=== PATIENT | male | born 1965 | race Caucasian/White ===

== ENCOUNTER 2019-07-04 10:57 | Emergency (ER) | payer BC, SELFPAY ==
--- NOTE | ~2019-07-04 | CT_ITS ---
EXAMINATION: CT BRAIN W/O DATE: 07/04/2019 11:49 INDICATION: Headache. Paresthesias. TECHNIQUE: Computed tomography (CT) of the head was performed without intravenous contrast. The dose- length product was 681.00 mGy-cm. The mA was adjusted according to patient size. Iterative reconstruc tion technique was employed. COMPARISON: No prior studies for comparison. FINDINGS: Normal brain parenchymal volume for age. Normal riley-white differentiation. No acute intrac ranial hemorrhage, infarction, mass or mass effect. There are scattered mild periventricular and subc ortical white matter changes, most likely related to small vessel ischemic disease (microangiopathy). No ventriculomegaly or midline shift. Midline sagittal images demonstrate a normal corpus callosum, c raniovertebral junction and sella turcica. Basilar cisterns are patent. Paranasal sinuses and mastoids are pneumatized. No depressed skull fractures. IMPRESSION: 1. No acute intracranial abnormality. 2: Normal age-related findings. Reviewed, dictated and finalized at location A.
[2019-07-04 11:02] VITALS: BP 135/76; PULSE 97; RESP 16; TEMP 36.6; O2SAT 98
--- NOTE | 2019-07-04 11:28 | ED.GENADULT ---
HPI - General Adult General Chief complaint: Unspecified Stated complaint: SINUS CONGESTION X 2MONTHS Time Seen by Provider: 07/04/19 11:24 Source: patient and RN notes reviewed Mode of arrival: ambulatory Limitations: no limitations History of Present Illness HPI narrative: Pt is a 54 y/o male who presents to the ED with c/o frontal headache. He describes his pain as a pressure. According to the nurse, the pt's symptoms began several months ago. Pt notes that he has also recently had chills, tingling in his rt arm, increased thirst, urinary frequency, intermittent blurry vision, and troubled balance. He denies any fever, CP, SOB, ABD pain, nausea, vomiting, diarrhea, homicidal ideations, or suicidal ideations. Pt states that his headache is currently alleviated. He notes that he has no Hx of DM, and states that he doesn't currently have a PCP. MD complaint: Headache Onset (ago): month(s) (several) Location: head Pain Consistency: other (currently alleviated) Associated symptoms: fever/chills (chills) and other (troubled balance; tingling in rt arm; increased thirst; urinary frequency; blurred vision) Treatments prior to arrival: none Related Data Home Medications Medication Instructions Recorded Confirmed No Home Medications 07/04/19 07/04/19 Allergies Allergy/AdvReac Type Severity Reaction Status Date / Time No Known Allergies Allergy Unknown Verified 07/04/19 11:15 Review of Systems Review of Systems: Narrative: CONSTITUTIONAL: Denies fever or sweats. Reports chills and increased thirst. EYES: Reports blurred vision. Denies redness or discharge. ENT: Denies rhinorrhea, congestion, sore throat, or otalgia. CARDIOVASCULAR: Denies chest pain, palpitations, or edema. RESPIRATORY: Denies cough or dyspnea. GASTROINTESTINAL: Denies abdominal pain, nausea, vomiting, or diarrhea. GENITOURINARY: Denies dysuria or hematuria. Reports urinary frequency. NEUROLOGIC: Reports frontal headache, troubled balance, and tingling in rt arm. Denies weakness. PSYCHIATRIC: Denies anxiety, depression, suicidal ideations, or homicidal ideations. All systems reviewed & are unremarkable except as noted in HPI and below PMFSH Past Medical History Medical History Gastritis Rib fractures Surgical History Surgical History No significant past surgical history Social History Social History Smoking status: Current every day smoker Exam Narrative: Exam Narrative: GENERAL: Well-appearing, well-nourished, and in no acute distress. HEAD: Normocephalic, atraumatic. EYES: PERRLA and EOMI. ENT: Nares clear, no rhinorrhea or epistaxis. Mucous membranes moist. NECK: Supple. CHEST: Clear to auscultation. No respiratory distress. HEART: Regular rate and rhythm. No murmur heard. Normal peripheral pulses. ABDOMEN: Soft, nontender, nondistended, normal active bowel sounds. Nontender umbilical hernia. EXTREMITIES: Normal range of motion. No edema. SKIN: Warm, dry, no rash. NEURO: No focal deficits. Alert and oriented. Finger to nose intact bilaterally. EOMs intact without nystagmus. No facial droop/asymmetry noted bilaterally. Grimace intact. Intact sensation in face. Hearing intact bilaterally. Shoulder shrug intact. Strength 5/5 bilateral upper extremities. Strength 5/5 bilateral lower extremities. Reflexes 2+ patellar. Heel to rich intact bilaterally. Ambulatory with a narrow base, steady gait, no ataxia. Course Course Emergency Course: Patient presented for evaluation Vital Signs Vital signs: Vital Signs Temperature 36.6 C 07/04/19 11:02 Pulse Rate 97 07/04/19 11:02 Respiratory Rate 16 07/04/19 11:02 Blood Pressure 135/76 07/04/19 11:02 Pulse Oximetry 98 07/04/19 11:02 Temperature 36.6 C 07/04/19 11:02 Pulse Rate 97 07/04/19 11:02 Respiratory Rate 16 07/04/19 11:02 Blood Press
[2019-07-04 12:03] LABS: Basophils Absolute Auto 0.1 K/mm3 (0.0-0.1); Basophils Percent Auto 0.7 % (0.2-1.2); Eosinophils Absolute Auto 0.2 K/mm3 (0-0.3); Eosinophils Percent Auto 1.6 % (0-4.4); Hematocrit 46.6 % (42.0-52.0); Hemoglobin 15.1 g/dL (14.0-18.0); Immature Granulocyte Absolute 0.05 K/mm3 (0.00-0.031); Immature Granulocyte Percent A 0.4 % (0-0.5); Lymphocytes Absolute Auto 2.69 K/mm3 (0.9-3.2); Lymphocytes Percent Auto 21.9 % (18.3-44.2); Mean Corpuscular HGB Conc 32.4 g/dl (32-36); Mean Corpuscular Hemoglobin 29.7 pg (26-34); Mean Corpuscular Volume 91.6 fl (80-100); Mean Platelet Volume 10.4 fl (7.4-10.4); Neutrophils Absolute Auto 8.3 K/mm3 (1.3-6.7); Neutrophils Percent Auto 67.4 % (45.5-73.1); Platelet Count Result 201 k/mm3 (150-375); Red Blood Count 5.09 M/mm3 (4.6-6.20); Red Cell Distribution Width 13.1 % (11.5-14.5); White Blood Count 12.3 K/mm3 (4.5-10.0)
[2019-07-04 12:11] LABS: Add Urine Microscopic? NO; Appearance Urine Clear (Clear); Bilirubin Urine Negative (Negative); Blood Urine Negative (Negative); Color Urine Straw (Yellow); Glucose Urine UA Negative (Negative); Ketones Urine Negative (Negative); Leukocyte Esterase Ur Negative LEU/UL (Negative); Nitrate Urine Negative (Negative); Protein Urine Negative (Negative); Specific Grav Ur 1.008 (1.001-1.035); Urobilinogen Urine Negative mg/dL (<2.0)
[2019-07-04 12:13] LABS: Alanine Aminotransferase 12 U/L (4-50); Albumin Level 4.2 g/dL (3.5-5.1); Alkaline Phosphatase 101 U/L (38-126); Aspartate Amino Transferase 20 U/L (17-59); Bilirubin,Total 0.2 mg/dL (0.2-1.3); Blood Urea Nitrogen 12 mg/dL (9-20); Calcium 9.1 mg/dL (8.4-10.2); Carbon Dioxide 30 mmol/L (22-30); Chloride 105 mmol/L (98-107); Estimated CRCL calculation 101 ml/min; Estimated Glomerular Filt Rate > 60; Glucose 96 mg/dL (75-110); Potassium 4.6 mmol/L (3.4-5.0); Sodium 137 mmol/L (137-145)
[2019-07-04 12:36] LABS: Amphetamine Screen Urine Negative (Negative); Barbiturate Screen Urine Negative (Negative); Benzodiazepines Screen Urine Negative (Negative); Cannabinoid Screen Urine Negative (Negative); Cocaine Screen Urine Negative (Negative); Methadone Screen Urine Negative (Negative); Opiate Screen Urine Negative (Negative); Phencyclidine Screen Urine Negative (Negative)
[2019-07-04 13:02] VITALS: BP 132/88; PULSE 84; RESP 16; O2SAT 97
== END 2019-07-04 13:03 | disposition home or self-care (01) ==
PROVIDERS: Emergency Provider Emergency Medicine
DX: R53.81 Other malaise (principal); R53.1 Weakness; F17.200 Nicotine dependence, unspecified, uncomplicated
CPT/HCPCS: 36415; 70450; 80053; 80307; 81003; 85025; 99284

== ENCOUNTER 2020-12-04 09:52 | Emergency (ER) | payer BC, SELFPAY ==
--- NOTE | ~2020-12-04 | CT_ITS ---
EXAMINATION: CT brain wo con DATE: 12/04/2020 11:57 INDICATION: Headache and confusion. TECHNIQUE: Computed tomography (CT) of the head was performed without intravenous contrast. The mA wa s adjusted according to patient size. Iterative reconstruction technique was employed. The dose-lengt h product was 605.33 mGy-cm. COMPARISON: Head CT 07/04/2019 FINDINGS: There is no intracranial hemorrhage, acute infarction, or abnormal intracranial mass lesion . There are scattered areas of low attenuation in the cerebral white matter, which is within normal l imits for the patient's age. The ventricles are normal in size. There is mild mucosal thickening in t he paranasal sinuses. The orbits are normal. The mastoid air cells are normal. IMPRESSION: 1. Normal aging brain. Reviewed, dictated and finalized at location A. IMPRESSION: 1. Normal aging brain.
[2020-12-04 10:06] VITALS: BP 141/98; PULSE 100; RESP 16; TEMP 36.6; O2SAT 96
--- NOTE | 2020-12-04 11:33 | ED.GENADULT ---
HPI - General Adult General Chief complaint: Unspecified Stated complaint: Headache Time Seen by Provider: 12/04/20 11:07 History of Present Illness HPI narrative: 55 yo male presents to the ED c/o multiple symptoms. He reports that about a year ago he began expiriencing a few different symptoms. He has had frequent frontal headaches that feel like pressure. He also notes jolts in the arms and legs. He reports that they move on the inside, not the outside. He also feels like he can not drink enough water, he is always dehydrated. Additionally he thinks that he might have been bleeding from his ears about 1 month ago. He is concerned that someone may be poisoning him. Related Data Home Medications Medication Instructions Recorded Confirmed No Home Medications 07/04/19 07/04/19 Allergies Allergy/AdvReac Type Severity Reaction Status Date / Time No Known Allergies Allergy Unknown Verified 07/04/19 11:15 Review of Systems Review of Systems: All systems reviewed & are unremarkable except as noted in HPI and below Constitutional: Constitutional: Denies fever(s) and Reports headache(s) Eyes: Eyes: Reports blurry vision ENT: Reports dry mouth Cardiovascular: Cardiovascular: Denies chest pain Respiratory: Respiratory: Denies dyspnea Gastrointestinal: Gastrointestinal: Reports nausea and Reports vomiting Genitourinary: Genitourinary: Reports no additional male genitourinary complaints Musculoskeletal: Musculoskeletal: Reports as per HPI Neurologic: Reports as per HPI [facility] Past Medical History Medical History (Updated 12/04/20 @ 15:01 by Red Thomason MD) Gastritis Rib fractures Surgical History Surgical History No significant past surgical history Social History Social History Smoking status: Current every day smoker Exam Const: General: healthy appearing, no acute distress and alert Orientation/consciousness: patient oriented x3 HENMT: Head: normal to inspection Ears: external ears normal and TM's normal bilaterally Neck: Neck: normal visual inspection Resp: Effort & Inspection: normal respiratory effort Auscultation: no rales, no rhonchi and wheezes scattered wheezes Cardio: Jugular venous distension: no JVD Rate: regular rate Rhythm: regular rhythm Heart sounds: no murmurs GI: Inspection: non-distended GI Palp: Yes Soft to palpation and No Tenderness to palpation present (GI) Skin: General skin exam: normal color Neuro: General: patient oriented x3 and moves all extremities Speech: normal speech Extrem: General: no edema Psych: Appearance: well kempt Affect: normal affect Thought content: Yes other (mild paranoia) Course Vital Signs Vital signs: Vital Signs Temperature 36.6 C 12/04/20 10:06 Pulse Rate 100 12/04/20 10:06 Respiratory Rate 16 12/04/20 10:06 Blood Pressure 141/98 H 12/04/20 10:06 Pulse Oximetry 96 12/04/20 10:06 Temperature 36.6 C 12/04/20 10:06 Pulse Rate 90 12/04/20 15:22 Respiratory Rate 18 12/04/20 15:22 Blood Pressure 141/84 H 12/04/20 15:22 Pulse Oximetry 98 12/04/20 15:22 Medical Decision Making MDM Narrative Medical decision making narrative: Symptoms aare nonspecific. He seems to be mildly paranoid, but not to the level of needing psychiatric evaluation at this point. Labs and imaging unremarkable. Differential Diagnosis Differential Diagnosis: SAH, Brain mass, tension headache, anxiety Medical Records Medical records reviewed: Yes I reviewed the external patient's medical records. Vital Signs Vital Signs: Vital Signs Temperature 36.6 C 12/04/20 10:06 Pulse Rate 100 12/04/20 10:06 Respiratory Rate 16 12/04/20 10:06 Blood Pressure 141/98 H 12/04/20 10:06 Pulse Oximetry 96 12/04/20 10:06 Temperature 36.6 C 12/04/20 10:06 Pulse Rate 90 12/04/20 15:22 Res
[2020-12-04 12:55] LABS: Basophils Percent Auto 0.3 % (0.2-1.2); Eosinophils Absolute Auto 0.2 K/mm3 (0-0.3); Eosinophils Percent Auto 1.9 % (0-4.4); Hematocrit 45.6 % (42.0-52.0); Immature Granulocyte Absolute 0.02 K/mm3 (0.00-0.031); Immature Granulocyte Percent A 0.2 % (0-0.5); Lymphocytes Absolute Auto 2.08 K/mm3 (0.9-3.2); Mean Corpuscular HGB Conc 32.9 g/dl (32-36); Mean Corpuscular Hemoglobin 29.4 pg (26-34); Mean Corpuscular Volume 89.2 fl (80-100); Mean Platelet Volume 10.4 fl (7.4-10.4); Monocytes Absolute Auto 0.7 K/mm3 (0.1-0.6); Monocytes Percent Auto 6.5 % (2.6-8.5); Neutrophils Absolute Auto 7.4 K/mm3 (1.3-6.7); Neutrophils Percent Auto 71.1 % (45.5-73.1); Platelet Count Result 241 k/mm3 (150-375); Red Blood Count 5.11 M/mm3 (4.6-6.20); Red Cell Distribution Width 13.6 % (11.5-14.5); White Blood Count 10.4 K/mm3 (4.5-10.0)
[2020-12-04 13:08] LABS: INR 0.9
[2020-12-04 13:09] LABS: Partial Thromboplastin Time 32.1 SECONDS (22.3-36.8)
[2020-12-04 13:10] LABS: Alanine Aminotransferase 15 U/L (4-50); Albumin Level 4.1 g/dL (3.5-5.1); Alkaline Phosphatase 116 U/L (38-126); Anion Gap 6 mmol/L (8-16); Aspartate Amino Transferase 21 U/L (17-59); Bilirubin,Total 0.3 mg/dL (0.2-1.3); Blood Urea Nitrogen 13 mg/dL (9-20); Calcium 9.4 mg/dL (8.4-10.2); Carbon Dioxide 26 mmol/L (22-30); Chloride 103 mmol/L (98-107); Estimated CRCL calculation 112 ml/min; Estimated Glomerular Filt Rate > 60; Glucose 109 mg/dL (65-110); Sodium 135 mmol/L (137-145)
[2020-12-04] MEDS: SODIUM CHLORIDE 0.9% IV 1,000 ML 999 ML IV CONT (13:21)
[2020-12-04 14:27] LABS: Add Urine Microscopic? NO; Appearance Urine Clear (Clear); Bilirubin Urine Negative (Negative); Blood Urine Negative (Negative); Color Urine Yellow (Yellow); Glucose Urine UA Negative (Negative); Ketones Urine Negative (Negative); Leukocyte Esterase Ur Negative LEU/UL (Negative); Nitrate Urine Negative (Negative); Protein Urine Negative (Negative); Specific Grav Ur 1.019 (1.001-1.035); Urobilinogen Urine Negative mg/dL (<2.0)
[2020-12-04 14:36] LABS: Mucus Urine Rare /lpf; RBC Urine 0-2 /hpf (0-2); WBC Urine 0-3 /hpf
[2020-12-04 15:22] VITALS: BP 141/84; PULSE 90; RESP 18; O2SAT 98
== END 2020-12-04 15:25 | disposition home or self-care (01) ==
PROVIDERS: Emergency Provider Emergency Medicine
DX: F51.9 Sleep disorder not due to a substance or known physiological condition, unspecified (principal); F17.200 Nicotine dependence, unspecified, uncomplicated
CPT/HCPCS: 36415; 70450; 80053; 81003; 85025; 85610; 85730; 96360; 99284; J7030

== ENCOUNTER → 2020-12-29 13:02 | Outpatient (CLI) | payer OTHER, SELFPAY ==
--- NOTE | ~2020-12-29 | XR_ITS ---
EXAMINATION: XR chest 2V 12/29/2020 13:18 INDICATION: Tobacco use PROCEDURE: 2 view chest COMPARISON: 06/12/2018 FINDINGS: The lungs are clear. The cardiomediastinal silhouette is within normal limits. There are no pleural effusions. There is no pneumothorax suspected. IMPRESSION: 1: NO ACUTE CARDIOPULMONARY DISEASE. Reviewed, dictated and finalized at location A.
== END ==
PROVIDERS: PCP Emergency Medicine; Visit Provider Emergency Medicine
DX: Z72.0 Tobacco use (principal)
CPT/HCPCS: 71046

== ENCOUNTER 2021-01-21 14:26 | Emergency (ER) | payer OTHER, SELFPAY ==
[2021-01-21 14:29] VITALS: BP 136/73; PULSE 89; RESP 14; TEMP 36.5; O2SAT 98
== END 2021-01-22 04:30 | disposition left against medical advice (07) ==
PROVIDERS: PCP Emergency Medicine
DX: F22 Delusional disorders (principal)
CPT/HCPCS: 99199

== ENCOUNTER 2021-01-27 04:06 | Emergency (ER) | payer OTHER, SELFPAY ==
--- NOTE | 2021-01-27 04:23 | PC.NURSE ---
pt. up to the triage desk stating he would like to go home and lay down because he is tired.
--- NOTE | 2021-01-27 04:26 | PC.NURSE ---
pt. left ed. pt. alert and oriented upon departure. pt. ambulated with steady gait and in no distress.
== END 2021-01-27 05:47 | disposition left against medical advice (07) ==
PROVIDERS: PCP Emergency Medicine
DX: R51.9 Headache, unspecified (principal)
CPT/HCPCS: 99199

== ENCOUNTER 2021-02-25 16:11 | Emergency (ER) | payer BC, MEDICAID, SELFPAY ==
[2021-02-25 16:18] VITALS: BP 141/90; PULSE 96; RESP 16; TEMP 36.6; O2SAT 96
[2021-02-25 16:49] LABS: Basophils Absolute Auto 0.1 K/mm3 (0.0-0.1); Basophils Percent Auto 0.5 % (0.2-1.2); Eosinophils Absolute Auto 0.2 K/mm3 (0-0.3); Eosinophils Percent Auto 1.2 % (0-4.4); Hematocrit 46.4 % (42.0-52.0); Hemoglobin 15.4 g/dL (14.0-18.0); Immature Granulocyte Absolute 0.05 K/mm3 (0.00-0.031); Immature Granulocyte Percent A 0.4 % (0-0.5); Lymphocytes Absolute Auto 2.46 K/mm3 (0.9-3.2); Lymphocytes Percent Auto 20.3 % (18.3-44.2); Mean Corpuscular HGB Conc 33.2 g/dl (32-36); Mean Corpuscular Hemoglobin 30.3 pg (26-34); Mean Corpuscular Volume 91.3 fl (80-100); Mean Platelet Volume 9.9 fl (7.4-10.4); Monocytes Absolute Auto 0.8 K/mm3 (0.1-0.6); Monocytes Percent Auto 6.7 % (2.6-8.5); Neutrophils Absolute Auto 8.6 K/mm3 (1.3-6.7); Neutrophils Percent Auto 70.9 % (45.5-73.1); Platelet Count Result 215 k/mm3 (150-375); Red Blood Count 5.08 M/mm3 (4.6-6.20); Red Cell Distribution Width 14.4 % (11.5-14.5); White Blood Count 12.1 K/mm3 (4.5-10.0)
[2021-02-25 17:06] LABS: Alanine Aminotransferase 13 U/L (4-50); Albumin Level 4.2 g/dL (3.5-5.1); Alkaline Phosphatase 112 U/L (38-126); Anion Gap 6 mmol/L (8-16); Aspartate Amino Transferase 20 U/L (17-59); Bilirubin,Total 0.4 mg/dL (0.2-1.3); Blood Urea Nitrogen 11 mg/dL (9-20); Calcium 9.3 mg/dL (8.4-10.2); Carbon Dioxide 26 mmol/L (22-30); Chloride 107 mmol/L (98-107); Estimated CRCL calculation 111 ml/min; Estimated Glomerular Filt Rate > 60; Glucose 105 mg/dL (65-110); Potassium 3.9 mmol/L (3.4-5.0); Sodium 139 mmol/L (137-145)
[2021-02-25 17:14] LABS: Add Urine Microscopic? NO; Appearance Urine Clear (Clear); Bilirubin Urine Negative (Negative); Blood Urine Negative (Negative); Color Urine Yellow (Yellow); Glucose Urine UA Negative (Negative); Ketones Urine Negative (Negative); Leukocyte Esterase Ur Negative LEU/UL (Negative); Nitrate Urine Negative (Negative); Protein Urine Negative (Negative); Specific Grav Ur 1.008 (1.001-1.035); Urobilinogen Urine Negative mg/dL (<2.0)
[2021-02-25 17:35] LABS: Amphetamine Screen Urine Negative (Negative); Barbiturate Screen Urine Negative (Negative); Benzodiazepines Screen Urine Negative (Negative); Cannabinoid Screen Urine Negative (Negative); Cocaine Screen Urine Negative (Negative); Methadone Screen Urine Negative (Negative); Opiate Screen Urine Negative (Negative); Phencyclidine Screen Urine Negative (Negative)
--- NOTE | 2021-02-25 18:58 | ED.PSYCH ---
HPI - Psych General Chief Complaint: Psychiatric Symptoms Stated Complaint: paranoid Time Seen by Provider: 02/25/21 16:14 Source: patient Mode of arrival: EMS History of Present Illness HPI Narrative: 56-year-old with history of paranoid schizophrenia was brought in by EMS with patient stating to Police Department that somebody after him. Patient states that he went home forgot his keys and locked them outside and went to another car and he found somebody stools a hand he got anxious and later walked to the police department saying that somebody is after him. Patient presently denies any symptoms . He denies being suicidal or homicidal. He states that he was in [facility] a month ago and he was given medication and he has not taken his pills today. complaint: other (Paranoia) History of same: Yes Relieving factors: medication Exacerbating factors: none Associated psychiatric symptoms: none Associated symptoms: denies other symptoms Related Data Home Medications Medication Instructions Recorded Confirmed No Home Medications 07/04/19 07/04/19 Allergies Allergy/AdvReac Type Severity Reaction Status Date / Time No Known Allergies Allergy Unknown Verified 07/04/19 11:15 Review of Systems Review of Systems: All systems reviewed & are unremarkable except as noted in HPI and below Constitutional: Constitutional: Reports no additional constitutional complaints Eyes: Eyes: Reports no additional eye complaints ENT: Reports system reviewed and no additional complaints, except as documented Cardiovascular: Cardiovascular: Reports no additional cardiovascular complaints Respiratory: Respiratory: Reports no additional respiratory complaints Gastrointestinal: Gastrointestinal: Reports no additional gastrointestinal complaints Genitourinary: Genitourinary: Reports no additional male genitourinary complaints Musculoskeletal: Musculoskeletal: Reports no additional musculoskeletal complaints Neurologic: Reports system reviewed and no additional complaints, except as documented Psychiatric: Psychiatric: Reports as per HPI Endocrine: Endocrine: Reports no additional endocrine complaints Hematologic/Lymphatic: Hematologic/Lymphatic: Reports no additional hematologic/lymphatic complaints PMFSH Past Medical History Medical History Gastritis Rib fractures Surgical History Surgical History No significant past surgical history Social History Social History Smoking status: Current every day smoker Substance use type: does not use Exam Narrative: GENERAL: Well-appearing, well-nourished, and in no acute distress. HEAD: Normocephalic, atraumatic. EYES: PERRLA and EOMI.. NECK: Supple. CHEST: Clear to auscultation. No respiratory distress. HEART: Regular rate and rhythm. No murmur heard. Normal peripheral pulses. ABDOMEN: Soft, nontender, nondistended, normal active bowel sounds. EXTREMITIES: Normal range of motion. No edema. SKIN: Warm, dry, no rash. NEURO: No focal deficits. Alert and oriented x3. PSYCH: Normal mood and affect. Course Course Emergency Course: Patient states he is feeling much better informed him about his lab work. Advised him to continue his medication. He denies being suicidal or homicidal he states that he will had an anxiety attack and he feels much comfortable going home. Vital Signs Vital signs: Vital Signs Temperature 36.6 C 02/25/21 16:18 Pulse Rate 96 02/25/21 16:18 Respiratory Rate 16 02/25/21 16:18 Blood Pressure 141/90 H 02/25/21 16:18 Pulse Oximetry 96 02/25/21 16:18 Temperature 36.6 C 02/25/21 16:18 Pulse Rate 96 02/25/21 16:18 Respiratory Rate 16 02/25/21 16:18 Blood Pressure 141/90 H 02/25/21 16:18 Pulse Oximetry 96 02/25/21 16:18 MDM - Psych Differenti
== END 2021-02-25 19:22 | disposition home or self-care (01) ==
PROVIDERS: Emergency Provider Family Medicine; PCP Emergency Medicine
DX: F22 Delusional disorders (principal); F17.210 Nicotine dependence, cigarettes, uncomplicated
CPT/HCPCS: 36415; 80053; 80307; 81003; 85025; 99283

== ENCOUNTER 2022-03-18 23:45 | Emergency (ER) | payer BC, OTHER, SELFPAY ==
--- NOTE | ~2022-03-18 | CT_ITS ---
EXAMINATION: CT brain wo con DATE: 03/19/2022 01:25 INDICATION: Headache TECHNIQUE: Computed tomography (CT) of the head was performed without intravenous contrast. The mA wa s adjusted according to patient size. Iterative reconstruction technique was employed. Exam dose: 60 5.33 mGy-cm total exam DLP. COMPARISON: 12/04/2020 CT brain FINDINGS: Mild cerebral atherosclerotic calcification. No intracranial mass lesion or hemorrhage or c erebrovascular accident is detected. No midline shift or mass effect. No subdural or epidural hematom a. Orbital contents are unremarkable. The mastoid air cells and included paranasal sinuses are unremarkable. No fracture or bone destructio n of the cranial vault. IMPRESSION: Mild cerebral atherosclerosis; no acute intracranial finding Reviewed, dictated and finalized at Location A. Reviewed, dictated and finalized at location B. OGRAPHIC PHOTOGRAPHER
[2022-03-18 23:46] VITALS: BP 126/66; PULSE 106; RESP 18; TEMP 36.5; O2SAT 100
[2022-03-19 00:51] LABS: SARS-CoV-2 RNA PCR Negative
--- NOTE | 2022-03-19 01:00 | PC.NURSE ---
Pt reports these s/s have been going on for over a year. Pt is A/O x 4 but just keeps talking about how he is confused. Pt states I do little things backwards and I'm dropping things. I get nervous a little bit.
[2022-03-19 01:13] LABS: Influenza A QL RT-PCR Negative (Negative); Influenza B QL RT-PCR Negative (Negative)
--- NOTE | 2022-03-19 01:39 | ED.GENADULT ---
HPI - General Adult General Chief complaint: Unspecified <Sybil Kim PA-C - Last Filed: 03/19/22 03:27> Stated complaint: headaches, chills <JERAD Stroud Last Filed: 03/19/22 03:27> Time Seen by Provider: 03/19/22 00:54 <JERAD Stroud Last Filed: 03/19/22 03:27> Source: patient <JERAD Stroud Last Filed: 03/19/22 03:27> Mode of arrival: ambulatory <JERAD Stroud Last Filed: 03/19/22 03:27> Limitations: no limitations <JERAD Stroud Last Filed: 03/19/22 03:27> History of Present Illness HPI narrative: This is a 57 year old male that presents to the ER for symptoms ongoing over the last year. Reports daily pounding headaches. Reports he feels like he has chills in his head. He does not take anything for his headaches. Also reports myalgias in his low back. No recent injuries or trauma. He does not have a primary care doctor. Denies fever, chest pain, shortness of breath, vision changes, vomiting, numbness or weakness. <JERAD Stroud Last Filed: 03/19/22 03:27> Related Data Home medications: Home Medications Medication Instructions Recorded Confirmed No Home Medications 07/04/19 07/04/19 <JERAD Stroud Last Filed: 03/19/22 03:27> Allergies/adverse reactions: Allergies Allergy/AdvReac Type Severity Reaction Status Date / Time No Known Allergies Allergy Unknown Verified 07/04/19 11:15 <JERAD Stroud Last Filed: 03/19/22 03:27> Review of Systems Review of Systems: CONSTITUTIONAL: Reports chills. Denies fever EYES: Denies visual changes ENT: Denies congestion, sore throat CARDIOVASCULAR: Denies chest pain RESPIRATORY: Denies dyspnea. GASTROINTESTINAL: Denies vomiting SKIN: Denies rash MUSCULOSKELETAL: Reports myalgia. NEUROLOGIC: Reports headache. Denies numbness, or weakness. <Sybil Kim PA-C - Last Filed: 03/19/22 03:27> All systems reviewed & are unremarkable except as noted in HPI and below <Sybil Kim PA-C - Last Filed: 03/19/22 03:27> PMFSH Past Medical History Medical History: Medical History (Updated 03/20/22 @ 00:01 by Denis Mcintosh) Gastritis History of schizophrenia Rib fractures <Sybil Kmi PA-C - Last Filed: 03/19/22 03:27> Surgical History Surgical History: Surgical History No significant past surgical history <Sybil Kim PA-C - Last Filed: 03/19/22 03:27> Social History Social History: Social History Smoking status: Current every day smoker Substance use type: does not use <JERAD Stroud Last Filed: 03/19/22 03:27> Exam Narrative: GENERAL: Well-appearing, well-nourished, and in no acute distress. HEAD: Normocephalic, atraumatic. EYES: PERRLA and EOMI. ENT: Nares clear, no rhinorrhea or epistaxis. Mucous membranes moist. Oropharynx without tonsillar hypertrophy exudate or other lesions. Bilateral TMs pearly riley non-bulging NECK: Supple. No adenopathy or masses CHEST: Clear to auscultation. No respiratory distress. No wheezes rales or rhonchi HEART: Regular rate and rhythm. No murmur heard. Normal peripheral pulses. ABDOMEN: Soft, nontender, nondistended, normal active bowel sounds. EXTREMITIES: Normal range of motion. No edema. Strength equal in bilateral upper and lower extremities (5/5) SKIN: Warm, dry, no rash. NEURO: No focal deficits. Alert and oriented x3. CN II-XII grossly intact PSYCH: Normal mood and affect <JERAD Stroud Last Filed: 03/19/22 03:27> Course Course Emergency Course: Patient resting comfortably <Sybil Kim PA-C - Last Filed: 03/19/22 03:27> LINUX DEVELOPER/PA Physician Supervision For this encounter, I have reviewed the mid-level provider documentation, treatment plan and medical decision making. I have had [id number] time with the patient
[2022-03-19 01:41] LABS: Basophils Percent Auto 0.4 % (0.2-1.2); Eosinophils Absolute Auto 0.2 K/mm3 (0-0.3); Eosinophils Percent Auto 2.6 % (0-4.4); Hematocrit 43.8 % (42.0-52.0); Hemoglobin 14.2 g/dL (14.0-18.0); Immature Granulocyte Absolute 0.02 K/mm3 (0.00-0.031); Immature Granulocyte Percent A 0.2 % (0-0.5); Lymphocytes Absolute Auto 2.99 K/mm3 (0.9-3.2); Mean Corpuscular HGB Conc 32.4 g/dl (32-36); Mean Corpuscular Volume 92.4 fl (80-100); Monocytes Absolute Auto 0.6 K/mm3 (0.1-0.6); Monocytes Percent Auto 7.5 % (2.6-8.5); Neutrophils Absolute Auto 4.7 K/mm3 (1.3-6.7); Neutrophils Percent Auto 54.3 % (45.5-73.1); Platelet Count Result 160 k/mm3 (150-375); Red Blood Count 4.74 M/mm3 (4.6-6.20); Red Cell Distribution Width 13.9 % (11.5-14.5); White Blood Count 8.6 K/mm3 (4.5-10.0)
[2022-03-19] MEDS: ACETAMINOPHEN 500 MG TABLET 1000 MG PO (01:41)
[2022-03-19 01:54] LABS: Alanine Aminotransferase 16 U/L (6-50); Albumin Level 3.9 g/dL (3.5-5.1); Alkaline Phosphatase 74 U/L (38-126); Anion Gap 4 mmol/L (8-16); Aspartate Amino Transferase 21 U/L (17-59); Bilirubin,Total 0.3 mg/dL (0.2-1.3); Blood Urea Nitrogen 12 mg/dL (9-20); Calcium 8.6 mg/dL (8.4-10.2); Carbon Dioxide 32 mmol/L (22-30); Chloride 106 mmol/L (98-107); Estimated CRCL calculation 90 ml/min; Estimated Glomerular Filt Rate > 60; Glucose 151 mg/dL (65-110); Magnesium 2.3 mg/dL (1.6-2.3); Potassium 3.8 mmol/L (3.4-5.0); Sodium 142 mmol/L (137-145)
[2022-03-19 02:05] LABS: Amphetamine Screen Urine Negative (Negative); Barbiturate Screen Urine Negative (Negative); Benzodiazepines Screen Urine Negative (Negative); Cannabinoid Screen Urine Negative (Negative); Cocaine Screen Urine Negative (Negative); Methadone Screen Urine Negative (Negative); Opiate Screen Urine Negative (Negative); Phencyclidine Screen Urine Negative (Negative)
[2022-03-19 02:26] LABS: Hemoglobin A1C 6.2 % (<5.7)
== END 2022-03-19 04:16 | disposition home or self-care (01) ==
PROVIDERS: Physician Assistant; Emergency Provider Emergency Medicine
DX: R51.9 Headache, unspecified (principal); Z20.822 Contact with and (suspected) exposure to COVID-19; F17.200 Nicotine dependence, unspecified, uncomplicated; I67.2 Cerebral atherosclerosis
CPT/HCPCS: 36415; 70450; 80053; 80307; 83036; 83735; 85025; 87502; 99284; A9270; U0003; U0005

== ENCOUNTER 2022-04-15 02:24 | Emergency (ER) | payer BC, OTHER, SELFPAY ==
--- NOTE | ~2022-04-15 | CT_ITS ---
Non-contrast Head CT History: Headache COMPARISON: 03/19/2022 Technique: Axial non-contrast imaging of the brain was performed. Dose reduction technique was used on this scan by utilizing automated exposure control and iterative reconstruction technique. The dose -length product (DLP) was 1362.00 mGy-cm. Findings: There is no evidence of intracranial hemorrhage, mass lesion, or acute infarct. Brain par enchyma appears normal. The ventricles and subarachnoid spaces are normal in size. The calvarium ap pears normal. The visualized paranasal sinuses and mastoid air cells are clear. Impression: No significant abnormality seen. Reviewed, dictated and finalized at location . INGS INSPECTOR Impression: No significant abnormality seen.
[2022-04-15 02:29] VITALS: BP 119/59; PULSE 88; RESP 16; O2SAT 98
--- NOTE | 2022-04-15 02:47 | ED.GENADULT ---
[facility] - General Adult General Chief complaint: Unspecified Stated complaint: headache Time Seen by Provider: 04/15/22 02:37 History of Present Illness HPI narrative: 57-year-old male with history of headaches presenting the emergency department for evaluation of persistent headache. Patient states that he also feels like he has been drugged. Patient denies any intentional drug ingestion. Patient complains of some intermittent lightheadedness. Patient denies any associated chills or fevers. Patient denies any associated chest pain or shortness of breath. Does have a prior history of schizophrenia. Related Data Home Medications Medication Instructions Recorded Confirmed No Home Medications 07/04/19 07/04/19 Allergies Allergy/AdvReac Type Severity Reaction Status Date / Time No Known Allergies Allergy Unknown Verified 07/04/19 11:15 Review of Systems Review of Systems: CONSTITUTIONAL: Denies fever, chills, or sweats. EYES: Denies visual changes, redness, or discharge. ENT: Denies rhinorrhea, congestion, sore throat, or otalgia. CARDIOVASCULAR: Denies chest pain, palpitations, or edema. RESPIRATORY: Denies cough or dyspnea. GASTROINTESTINAL: Denies abdominal pain, nausea, vomiting, or diarrhea. GENITOURINARY: Denies dysuria or hematuria. SKIN: Denies rash or itching. MUSCULOSKELETAL: Denies back pain, joint pain, or myalgia. NEUROLOGIC: See [facility] Past Medical History Medical History (Updated 04/16/22 @ 00:00 by Background Daemon) Gastritis History of schizophrenia Rib fractures Surgical History Surgical History No significant past surgical history Social History Social History Smoking status: Current every day smoker Substance use type: does not use Exam Narrative: APPEARANCE: Well appearing, no pain, no distress, well-nourished. HEAD: normocephalic, atraumatic. EYES: PERRLA/EOMI, conjunctivae clear. NOSE: Normal no drainage NECK: Supple. No adenopathy, no masses. RESPIRATORY: Airway patent, respirations nonlabored. Clear to auscultation bilaterally, no rales, rhonchi, wheezing. CARDIOVASCULAR: Regular rate and rhythm without murmurs rubs or gallops. ABDOMINAL: Soft, nontender, nondistended, normal bowel sounds MUSCULOSKELETAL: Moves all extremities. Strength/ROM intact, No edema, No calf tenderness. NEURO: Alert. Cranial nerves II through XII intact. Grossly intact SKIN: Warm, dry. Normal Color Course Course Emergency Course: CT was ordered. Patient was provided medications for pain control doing Tylenol and IV fluids. Patient felt significantly improved after the medications. Were concerned for intracranial abnormality due to normal neuro exam. Patient did feel improved with rehydration. Suspected etiology is intermittent headache. Vital Signs Vital signs: Vital Signs Pulse Rate 88 04/15/22 02:29 Respiratory Rate 16 04/15/22 02:29 Blood Pressure 119/59 L 04/15/22 02:29 Pulse Oximetry 98 04/15/22 02:29 Oxygen Delivery Room Air 04/15/22 02:29 Pulse Rate 88 04/15/22 02:29 Respiratory Rate 16 04/15/22 02:29 Blood Pressure 119/59 L 04/15/22 02:29 Pulse Oximetry 98 04/15/22 02:29 Oxygen Delivery Room Air 04/15/22 02:29 Medical Decision Making Vital Signs Vital Signs: Vital Signs Pulse Rate 88 04/15/22 02:29 Respiratory Rate 16 04/15/22 02:29 Blood Pressure 119/59 L 04/15/22 02:29 Pulse Oximetry 98 04/15/22 02:29 Oxygen Delivery Room Air 04/15/22 02:29 Pulse Rate 88 04/15/22 02:29 Respiratory Rate 16 04/15/22 02:29 Blood Pressure 119/59 L 04/15/22 02:29 Pulse Oximetry 98 04/15/22 02:29 Oxygen Delivery Room Air 04/15/22 02:29 Lab Data Lab results reviewed: Yes I reviewed the patient's lab results. 04/15/22 02:58 04/15/22 02:58 Labs: Lab Results 04/15/2204/15
[2022-04-15] MEDS: PROCHLORPERAZINE EDISYLATE 10 MG/2 ML VIAL IV PUSH (03:00)
[2022-04-15 03:08] LABS: Basophils Absolute Auto 0.1 K/mm3 (0.0-0.1); Basophils Percent Auto 0.6 % (0.2-1.2); Eosinophils Absolute Auto 0.2 K/mm3 (0-0.3); Hematocrit 46.3 % (42.0-52.0); Hemoglobin 14.8 g/dL (14.0-18.0); Immature Granulocyte Absolute 0.01 K/mm3 (0.00-0.031); Immature Granulocyte Percent A 0.1 % (0-0.5); Lymphocytes Absolute Auto 3.47 K/mm3 (0.9-3.2); Lymphocytes Percent Auto 43.8 % (18.3-44.2); Mean Corpuscular Volume 93.7 fl (80-100); Mean Platelet Volume 10.2 fl (7.4-10.4); Monocytes Absolute Auto 0.6 K/mm3 (0.1-0.6); Monocytes Percent Auto 7.7 % (2.6-8.5); Neutrophils Absolute Auto 3.6 K/mm3 (1.3-6.7); Neutrophils Percent Auto 44.8 % (45.5-73.1); Platelet Count Result 192 k/mm3 (150-375); Red Blood Count 4.94 M/mm3 (4.6-6.20); Red Cell Distribution Width 14.3 % (11.5-14.5); White Blood Count 7.9 K/mm3 (4.5-10.0)
[2022-04-15] MEDS: SODIUM CHLORIDE 0.9% IV 1,000 ML 999 ML IV CONT (03:09)
[2022-04-15] MEDS: diphenhydrAMINE HCl INJ 50 MG/ML VIAL 25 MG IV PUSH (03:09)
[2022-04-15 03:22] LABS: Alanine Aminotransferase 18 U/L (6-50); Albumin Level 4.1 g/dL (3.5-5.1); Alkaline Phosphatase 78 U/L (38-126); Anion Gap 5 mmol/L (8-16); Aspartate Amino Transferase 21 U/L (17-59); Bilirubin,Total 0.3 mg/dL (0.2-1.3); Blood Urea Nitrogen 19 mg/dL (9-20); Calcium 8.9 mg/dL (8.4-10.2); Carbon Dioxide 29 mmol/L (22-30); Chloride 109 mmol/L (98-107); Estimated CRCL calculation 92 ml/min; Estimated Glomerular Filt Rate > 60; Glucose 128 mg/dL (65-110); Potassium 3.8 mmol/L (3.4-5.0); Sodium 143 mmol/L (137-145)
[2022-04-15 03:23] LABS: Add Urine Microscopic? YES; Appearance Urine Clear (Clear); Bilirubin Urine 1+ (Negative); Blood Urine Negative (Negative); Color Urine Yellow (Yellow); Glucose Urine UA Negative (Negative); Ketones Urine Trace mg/dL (Negative); Leukocyte Esterase Ur Negative LEU/UL (Negative); Nitrate Urine Negative (Negative); Protein Urine Negative (Negative); Specific Grav Ur >= 1.030 (1.001-1.035); pH Urine 5.5 (5.0-9.0)
[2022-04-15 03:30] LABS: Bacteria Urine Trace /hpf; Calcium Oxalate Crystals Urine Present /hpf; Mucus Urine Heavy /lpf; Squamous Epithelial Cell Urine Rare /hpf (Few); WBC Urine 0-3 /hpf
[2022-04-15 03:36] LABS: Amphetamine Screen Urine Negative (Negative); Barbiturate Screen Urine Negative (Negative); Benzodiazepines Screen Urine Negative (Negative); Cannabinoid Screen Urine Negative (Negative); Cocaine Screen Urine Negative (Negative); Methadone Screen Urine Negative (Negative); Opiate Screen Urine Negative (Negative); Phencyclidine Screen Urine Negative (Negative)
[2022-04-15 03:47] LABS: Influenza A QL RT-PCR Negative (Negative); Influenza B QL RT-PCR Negative (Negative); RSV RNA, RT-PCR Negative (Negative); SARS-CoV-2 RNA PCR Negative
== END 2022-04-15 07:02 | disposition home or self-care (01) ==
PROVIDERS: Emergency Provider Emergency Medicine
DX: R51.9 Headache, unspecified (principal); Z20.822 Contact with and (suspected) exposure to COVID-19; F17.200 Nicotine dependence, unspecified, uncomplicated
CPT/HCPCS: 36415; 70450; 80053; 80307; 81001; 85025; 87637; 96365; 96375; 99284; J0131; J0780; J1200; J7030

== ENCOUNTER 2022-10-04 06:04 | Emergency (ER) | payer BC, OTHER, SELFPAY ==
[2022-10-04 06:08] VITALS: BP 145/78; PULSE 92; RESP 18; TEMP 36.4; O2SAT 98
[2022-10-04 07:27] LABS: Appearance Urine Clear (Clear); Bilirubin Urine Negative (Negative); Blood Urine Negative (Negative); Color Urine Yellow (Yellow); Glucose Urine UA Negative (Negative); Ketones Urine Negative (Negative); Leukocyte Esterase Ur Negative LEU/UL (Negative); Nitrate Urine Negative (Negative); Protein Urine Negative (Negative); Specific Grav Ur 1.008 (1.001-1.035); Urobilinogen Urine 0.2 mg/dL (<2.0); pH Urine 5.5 (5.0-9.0)
[2022-10-04] MEDS: IBUPROFEN 600 MG TABLET PO (07:33)
[2022-10-04 07:40] LABS: Add Urine Microscopic? NO
[2022-10-04] MEDS: HYDROGEN PEROXIDE 3% SOLN(*SP) 473 ML BOTTLE (07:50)
[2022-10-04 08:09] VITALS: BP 117/79; PULSE 74; RESP 18; O2SAT 98
--- NOTE | 2022-10-04 08:35 | ED.GENADULT ---
HPI - General Adult General Chief complaint: Unspecified Stated complaint: unspecified Time Seen by Provider: 10/04/22 06:59 History of Present Illness HPI narrative: Patient is a 57-year-old male with history of schizophrenia who presents ER with multiple complaints. Major complaint is a mild throbbing headache that is frontal associated with static sounds in the right ear. Also has fullness in the right ear. No runny nose or sore throat or cough. No chest pain or chest pressure. Patient also reports that he has had some foul odor coming from around his private parts. No pustules or vesicles. No dysuria or urinary frequency/urgency. No discharge from the tip of his penis. Reports is been several years since he has had sex. Related Data Home Medications Medication Instructions Recorded Confirmed No Home Medications 07/04/19 07/04/19 Allergies Allergy/AdvReac Type Severity Reaction Status Date / Time No Known Allergies Allergy Unknown Verified 10/04/22 07:11 Review of Systems Constitutional: Constitutional: Denies chills, Denies fever(s) and Reports headache(s) ENT: Denies vertigo, Denies ear discharge, Reports otalgia, Reports headache(s), Denies nasal congestion and Reports tinnitus Gastrointestinal: Gastrointestinal: Denies abdominal pain, Denies nausea and Denies vomiting Genitourinary: Genitourinary: Denies oliguria, Denies genital lesions, Reports dysuria, Denies flank pain, Denies penile discharge, Denies testicular pain and Reports urinary frequency PMFSH Past Medical History Medical History (Updated 10/04/22 @ 08:44 by Tushar Tracy MD) Gastritis History of schizophrenia Rib fractures Surgical History Surgical History No significant past surgical history Social History Social History Smoking status: Current every day smoker Substance use type: does not use Exam Narrative: GENERAL: Well-appearing, well-nourished, and in no acute distress. HEAD: Normocephalic, atraumatic. ENT: Mucous membranes moist. Right ear cerumen impaction. Normal left tympanic membrane with only scant cerumen in the ear canal. CHEST: Clear to auscultation. No respiratory distress. HEART: Regular rate and rhythm. Normal peripheral pulses. ABDOMEN: Soft, nontender, nondistended. : Normal-appearing penis without urethral discharge or lesions. Testicles are nontender and without mass. EXTREMITIES: Normal range of motion. No edema. NEURO: Alert and oriented x3. PSYCH: Normal mood and affect. Course Course Emergency Course: Patient given reassurance. Feels improved after removal of earwax. Discharge home. Vital Signs Vital signs: Vital Signs Temperature 97.6 F 10/04/22 06:08 Pulse Rate 92 10/04/22 06:08 Respiratory Rate 18 10/04/22 06:08 Blood Pressure 145/78 H 10/04/22 06:08 Pulse Oximetry 98 10/04/22 06:08 Oxygen Delivery Room Air 10/04/22 06:08 Temperature 97.6 F 10/04/22 06:08 Pulse Rate 74 10/04/22 08:09 Respiratory Rate 18 10/04/22 08:09 Blood Pressure 117/79 10/04/22 08:09 Pulse Oximetry 98 10/04/22 08:09 Oxygen Delivery Room Air 10/04/22 06:08 Procedures Ear Wax Removal Right Ear: Ear Wax Removal Date: 10/04/22 Results: Re-examined: cerumen removed completely TM Examination: TM(s) intact, normal appearance Ear Canal Exam: atraumatic Patient Tolerated Procedure: well Complications: no problems Technique: ear canal irrigated Medical Decision Making Vital Signs Vital Signs: Vital Signs Temperature 97.6 F 10/04/22 06:08 Pulse Rate 92 10/04/22 06:08 Respiratory Rate 18 10/04/22 06:08 Blood Pressure 145/78 H 10/04/22 06:08 Pulse Oximetry 98 10/04/22 06:08 Oxygen Delivery Room Air 10/04/22 06:08 Temperature 97.6 F 10/04/22 06:08 Pulse Rate 74
[2022-10-04 08:50] VITALS: BP 119/78; PULSE 71; RESP 18; O2SAT 98
== END 2022-10-04 08:52 | disposition home or self-care (01) ==
PROVIDERS: Emergency Provider Emergency Medicine
DX: H61.21 Impacted cerumen, right ear (principal); R51.9 Headache, unspecified; F17.200 Nicotine dependence, unspecified, uncomplicated
CPT/HCPCS: 69209; 81003; 99282; A9270

== ENCOUNTER 2022-10-19 22:10 | Emergency (ER) | payer BC, OTHER, SELFPAY ==
--- NOTE | ~2022-10-19 | CT_ITS ---
EXAMINATION: CT brain wo con DATE: 10/20/2022 01:42 INDICATION: Altered mental status. Headache. Dizziness. TECHNIQUE: Computed tomography (CT) of the head was performed without intravenous contrast. The mA wa s adjusted according to patient size. Iterative reconstruction technique was employed. The dose-lengt h product was 681.00 mGy-cm. COMPARISON: Head CT 04/15/2022 FINDINGS: There is no intracranial hemorrhage, acute infarction, or abnormal intracranial mass lesion . The ventricles are normal in size. There are old fractures of the nasal bones. There is mild mucosa l thickening in the ethmoid sinuses. The mastoid air cells are normal. The orbits are normal. IMPRESSION: 1. Normal brain. Reviewed, dictated and finalized at location E. IMPRESSION: 1. Normal brain.
[2022-10-19 22:15] VITALS: BP 143/80; PULSE 103; RESP 20; TEMP 36.4; O2SAT 97
[2022-10-20 00:38] VITALS: BP 137/79; PULSE 83; RESP 16; O2SAT 95
[2022-10-20 00:54] LABS: Appearance Urine Clear (Clear); Bilirubin Urine Negative (Negative); Blood Urine Negative (Negative); Color Urine Yellow (Yellow); Glucose Urine UA Negative (Negative); Ketones Urine Trace mg/dL (Negative); Leukocyte Esterase Ur Negative LEU/UL (Negative); Nitrate Urine Negative (Negative); Protein Urine Negative (Negative); Specific Grav Ur 1.009 (1.001-1.035); Urobilinogen Urine 0.2 mg/dL (<2.0); pH Urine 5.5 (5.0-9.0)
[2022-10-20 00:58] LABS: Add Urine Microscopic? NO
[2022-10-20 01:10] LABS: Amphetamine Screen Urine Negative (Negative); Barbiturate Screen Urine Negative (Negative); Benzodiazepines Screen Urine Negative (Negative); Cannabinoid Screen Urine Negative (Negative); Cocaine Screen Urine Negative (Negative); Methadone Screen Urine Negative (Negative); Opiate Screen Urine Negative (Negative); Phencyclidine Screen Urine Negative (Negative)
[2022-10-20 01:17] VITALS: BP 110/76; PULSE 72
[2022-10-20 01:24] VITALS: BP 136/82; PULSE 86
[2022-10-20 01:25] VITALS: BP 108/84; PULSE 101
[2022-10-20] MEDS: ACETAMINOPHEN 500 MG TABLET 1000 MG PO (01:43)
[2022-10-20] MEDS: MECLIZINE HCL 25 MG TABLET PO (01:43)
--- NOTE | 2022-10-20 01:48 | ED.HA ---
HPI - Headache General Chief Complaint: Headache <JERAD Magallanes Last Filed: 10/20/22 04:07> Stated Complaint: headaches <JERAD Magallanes Last Filed: 10/20/22 04:07> Time Seen by Provider: 10/20/22 00:39 <JERAD Magallanes Last Filed: 10/20/22 04:07> Source: patient <JERAD Magallanes Last Filed: 10/20/22 04:07> Mode of arrival: ambulatory <JERAD Magallanes Last Filed: 10/20/22 04:07> Limitations: no limitations <JERAD Magallanes Last Filed: 10/20/22 04:07> History of Present Illness HPI Narrative: Patient is a 57-year-old male, with PMH of schizophrenia, who presents to ED with report of headaches and dizziness. Patient reports having intermittent frontal headaches for the last several months. Patient has been taking Tylenol for the pain without much relief. Denies any significant aggravating or alleviating factors to the headaches. He also reports having intermittent dizziness, worse with standing upright and described as lightheadedness, intermittent blurry vision. Patient states he feels like he is on drugs, but denies taking any drugs. He denies any nausea, vomiting, photophobia, phonophobia, history of migraines, weakness, numbness, chest pain, difficulty breathing. <JERAD Magallanes Last Filed: 10/20/22 04:07> Related Data Allergies/Adverse Reactions: Allergies Allergy/AdvReac Type Severity Reaction Status Date / Time No Known Allergies Allergy Unknown Verified 10/19/22 22:11 <JERAD Magallanes Last Filed: 10/20/22 04:07> Review of Systems Review of Systems: CONSTITUTIONAL: Denies fever, chills, or sweats. EYES: See HPI. CARDIOVASCULAR: Denies chest pain. RESPIRATORY: Denies dyspnea. GASTROINTESTINAL: Denies abdominal pain, nausea, vomiting. MUSCULOSKELETAL: Denies back pain, joint pain, or myalgia. NEUROLOGIC: See HPI. <Ana Luisa Streeter PA-C - Last Filed: 10/20/22 04:07> All systems reviewed & are unremarkable except as noted in HPI and below <Ana Luisa Streeter PA-C - Last Filed: 10/20/22 04:07> [facility] Past Medical History Medical History: Medical History Gastritis History of schizophrenia Rib fractures <Ana Luisa Streeter PA-C - Last Filed: 10/20/22 04:07> Surgical History Surgical History: Surgical History No significant past surgical history <Ana Luisa Streeter PA-C - Last Filed: 10/20/22 04:07> Social History Social History: Social History Smoking status: Current every day smoker Substance use type: does not use <Ana Luisa Streeter PA-C - Last Filed: 10/20/22 04:07> Exam Narrative: GENERAL: Appears older than stated age, non-toxic, in no acute distress. HEAD: Normocephalic, atraumatic. EYES: PERRLA/EOMI, conjunctiva clear. No nystagmus. NECK: Supple. No adenopathy, no masses. RESPIRATORY: Airway patent, respirations nonlabored. Clear to auscultation bilaterally, no rales, rhonchi, wheezing. CARDIOVASCULAR: Regular rate and rhythm without murmurs, rubs, or gallops. Peripheral pulses 2+ and equal bilaterally. MUSCULOSKELETAL: Moves all extremities. Strength/ROM intact without gross deformities. SKIN: Warm, dry, normal color. No rashes. NEURO: A&O X3. Speech clear. Cranial nerves II-XII grossly intact. Steady gait. No ataxic movements. No focal neurologic deficits. Equal art teacher strength bilaterally. Strength 5 out of 5 in upper and lower extremities bilaterally. No pronator drift. No reproduction of dizziness with sitting upright in ED bed. PSYCHIATRIC: Appropriate mood and affect. Normal interaction. <Ana Luisa Streeter PA-C - Last Filed: 10/20/22 04:07> Course HOME ASSESSMENT NURSE/PA Physician Supervision This is a was performed by
[2022-10-20] MEDS: SODIUM CHLORIDE 0.9% IV 1,000 ML 999 ML IV CONT (01:59)
[2022-10-20 02:05] LABS: Basophils Absolute Auto 0.1 K/mm3 (0.0-0.1); Basophils Percent Auto 0.7 % (0.2-1.2); Eosinophils Absolute Auto 0.1 K/mm3 (0-0.3); Eosinophils Percent Auto 1.4 % (0-4.4); Hematocrit 47.5 % (42.0-52.0); Hemoglobin 15.6 g/dL (14.0-18.0); Immature Granulocyte Absolute 0.04 K/mm3 (0.00-0.031); Immature Granulocyte Percent A 0.4 % (0-0.5); Lymphocytes Absolute Auto 3.07 K/mm3 (0.9-3.2); Lymphocytes Percent Auto 29.9 % (18.3-44.2); Mean Corpuscular HGB Conc 32.8 g/dl (32-36); Mean Corpuscular Hemoglobin 29.8 pg (26-34); Mean Corpuscular Volume 90.6 fl (80-100); Mean Platelet Volume 9.7 fl (7.4-10.4); Monocytes Absolute Auto 0.7 K/mm3 (0.1-0.6); Neutrophils Absolute Auto 6.2 K/mm3 (1.3-6.7); Neutrophils Percent Auto 60.6 % (45.5-73.1); Platelet Count Result 224 k/mm3 (150-375); Red Blood Count 5.24 M/mm3 (4.6-6.20); Red Cell Distribution Width 13.7 % (11.5-14.5); White Blood Count 10.3 K/mm3 (4.5-10.0)
[2022-10-20 02:17] LABS: Ethanol < 10 mg/dL (<10)
[2022-10-20 02:18] LABS: Alanine Aminotransferase 18 U/L (6-50); Albumin Level 4.4 g/dL (3.5-5.1); Alkaline Phosphatase 88 U/L (38-126); Anion Gap 3 mmol/L (8-16); Aspartate Amino Transferase 22 U/L (17-59); Bilirubin,Total 0.6 mg/dL (0.2-1.3); Blood Urea Nitrogen 15 mg/dL (9-20); Calcium 9.4 mg/dL (8.4-10.2); Carbon Dioxide 28 mmol/L (22-30); Chloride 105 mmol/L (98-107); Estimated CRCL calculation 109 ml/min; Estimated Glomerular Filt Rate > 60; Glucose 125 mg/dL (65-110); Potassium 3.7 mmol/L (3.4-5.0); Sodium 136 mmol/L (137-145)
[2022-10-20] MEDS: KETOROLAC 30 MG/ML VIAL (*BKC) IV PUSH (02:53)
[2022-10-20 03:41] VITALS: BP 110/67; BP 123/78; PULSE 66; PULSE 73
[2022-10-20 03:42] VITALS: BP 128/74; PULSE 69
== END 2022-10-20 04:14 | disposition home or self-care (01) ==
PROVIDERS: Emergency Provider Physician Assistant
DX: R51.9 Headache, unspecified (principal); R42 Dizziness and giddiness; I95.1 Orthostatic hypotension
CPT/HCPCS: 36415; 70450; 80053; 80307; 81003; 85025; 96361; 96374; 99284; A9270; J1885; J7030

== ENCOUNTER 2023-01-09 19:17 | Emergency (ER) | payer BC, OTHER, SELFPAY ==
--- NOTE | ~2023-01-09 | CT_ITS ---
EXAMINATION: CT brain wo con DATE: 01/09/2023 22:34 INDICATION: Audible hallucinations. TECHNIQUE: Computed tomography (CT) of the head was performed without intravenous contrast. The mA wa s adjusted according to patient size. Iterative reconstruction technique was employed. The dose-lengt h product was 681.00 mGy-cm. COMPARISON: Head CT 10/20/2022 FINDINGS: There is no intracranial hemorrhage, acute infarction, or abnormal intracranial mass lesion . The ventricles are normal in size. There is mild mucosal thickening in the paranasal sinuses. There are old fracture deformities of the nasal bones and nasal processes of maxilla. The mastoid air cell s are normal. The orbits are normal. IMPRESSION: 1. Normal brain. Reviewed, dictated and finalized at location E. IMPRESSION: 1. Normal brain.
[2023-01-09 19:43] VITALS: BP 129/72; PULSE 73; RESP 20; TEMP 36.6; O2SAT 97
[2023-01-09 23:15] LABS: Basophils Absolute Auto 0.1 K/mm3 (0.0-0.1); Basophils Percent Auto 0.6 % (0.2-1.2); Eosinophils Absolute Auto 0.2 K/mm3 (0-0.3); Eosinophils Percent Auto 2.5 % (0-4.4); Hematocrit 43.6 % (42.0-52.0); Hemoglobin 14.2 g/dL (14.0-18.0); Immature Granulocyte Absolute 0.03 K/mm3 (0.00-0.031); Immature Granulocyte Percent A 0.3 % (0-0.5); Lymphocytes Absolute Auto 3.13 K/mm3 (0.9-3.2); Lymphocytes Percent Auto 33.7 % (18.3-44.2); Mean Corpuscular HGB Conc 32.6 g/dl (32-36); Mean Corpuscular Hemoglobin 30.5 pg (26-34); Mean Corpuscular Volume 93.6 fl (80-100); Monocytes Absolute Auto 0.6 K/mm3 (0.1-0.6); Monocytes Percent Auto 6.8 % (2.6-8.5); Neutrophils Absolute Auto 5.2 K/mm3 (1.3-6.7); Neutrophils Percent Auto 56.1 % (45.5-73.1); Platelet Count Result 188 k/mm3 (150-375); Red Blood Count 4.66 M/mm3 (4.6-6.20); Red Cell Distribution Width 13.8 % (11.5-14.5); White Blood Count 9.3 K/mm3 (4.5-10.0)
[2023-01-09 23:17] LABS: Appearance Urine Clear (Clear); Bilirubin Urine Negative (Negative); Blood Urine Negative (Negative); Color Urine Yellow (Yellow); Glucose Urine UA Negative (Negative); Ketones Urine Negative (Negative); Leukocyte Esterase Ur Negative LEU/UL (Negative); Nitrate Urine Negative (Negative); Protein Urine Negative (Negative); Specific Grav Ur 1.011 (1.001-1.035); pH Urine 6.5 (5.0-9.0)
[2023-01-09 23:28] LABS: Acetaminophen < 10 ug/mL (10-30); Ethanol < 10 mg/dL (<10); Salicylate < 1.0 mg/dL (2-20)
[2023-01-09 23:32] LABS: Amphetamine Screen Urine Negative (Negative); Barbiturate Screen Urine Negative (Negative); Benzodiazepines Screen Urine Negative (Negative); Cannabinoid Screen Urine Negative (Negative); Cocaine Screen Urine Negative (Negative); Methadone Screen Urine Negative (Negative); Opiate Screen Urine Negative (Negative); Phencyclidine Screen Urine Negative (Negative)
--- NOTE | 2023-01-09 23:48 | ED.PSYCH ---
HPI - Psych General Chief Complaint: Psychiatric Symptoms Stated Complaint: Left ear pain/forehead pain Time Seen by Provider: 01/09/23 21:27 Source: patient Mode of arrival: ambulatory Limitations: no limitations History of Present Illness HPI Narrative: Patient is a 58-year-old male who presents ED with report of left ear complaints. Patient reports his left ear has been bothering him for at least 6 months to 1 year. He feels as though someone he works with or one of his neighbors planted a bug into his ear, a Facebook bug or a Wi-Fi bug. He states he can hear their voices telling him to do things. He states at one time they said if you went to get evaluated for this, that he would . He denies that the voices tell him to harm himself or anyone else. He also reports that these people irritate his private parts, particularly in the morning. He states they zap or vibrate his testicles and outside of his rear-end. He states he is unsure how they are doing this. He states maybe it is done through a laser. Patient denies seeing anything abnormal, denies any psychiatric history. Per records, patient does have history of schizophrenia. He is not currently on any medications for this. He denies any drug or alcohol use. He denies SI or HI. Denies any other concerns. Related Data Allergies Allergy/AdvReac Type Severity Reaction Status Date / Time No Known Allergies Allergy Unknown Verified 10/19/22 22:11 Review of Systems Review of Systems: CONSTITUTIONAL: Denies fever, chills, or sweats. EYES: Denies visual changes, redness, or discharge. ENT: See HPI. CARDIOVASCULAR: Denies chest pain, palpitations, or edema. RESPIRATORY: Denies cough or dyspnea. GASTROINTESTINAL: Denies abdominal pain, nausea, vomiting, or diarrhea. NEUROLOGIC: Denies headache, numbness, or weakness. PSYCHIATRIC: See HPI. All systems reviewed & are unremarkable except as noted in HPI and below PMFSH Past Medical History Medical History Gastritis History of schizophrenia Rib fractures Surgical History Surgical History No significant past surgical history Social History Social History Smoking status: Current every day smoker Substance use type: does not use Exam Narrative: GENERAL: Well appearing, well-nourished, non-toxic, in no acute distress. HEAD: Normocephalic, atraumatic. ENT: R ear normal. L ear with small amount of cerumen, no cerumen impaction. No evidence of AOM/AOE. No foreign bodies noted. NECK: Supple. No adenopathy, no masses. RESPIRATORY: Airway patent, respirations nonlabored. Clear to auscultation bilaterally, no rales, rhonchi, wheezing. CARDIOVASCULAR: Regular rate and rhythm without murmurs, rubs, or gallops. Radial pulses 2+ and equal bilaterally. MUSCULOSKELETAL: Moves all extremities. Strength/ROM intact without gross deformities. SKIN: Warm, dry, normal color. No rashes. NEURO: A&O X3. Speech clear. Cranial nerves II-XII grossly intact. Steady gait. No ataxic movements. No focal deficits. PSYCHIATRIC: Appropriate mood and affect. Normal interaction. Course Vital Signs Vital signs: Vital Signs Temperature 97.8 F 01/09/23 19:43 Pulse Rate 73 01/09/23 19:43 Respiratory Rate 20 01/09/23 19:43 Blood Pressure 129/72 01/09/23 19:43 Pulse Oximetry 97 01/09/23 19:43 Oxygen Delivery Room Air 01/09/23 19:43 Temperature 97.8 F 01/09/23 19:43 Pulse Rate 63 01/10/23 00:35 Respiratory Rate 16 01/10/23 00:35 Blood Pressure 124/80 01/10/23 00:35 Pulse Oximetry 96 01/10/23 00:35 Oxygen Delivery Room Air 01/09/23 19:43 MDM - Psych MDM Narrative Medical decision making narrative: Patient presented to ED with auditory hallucinations, bizarre/paranoid delusions. Feeling as though someone impl
[2023-01-09 23:49] LABS: SARS-CoV-2 RNA PCR Negative (Negative)
[2023-01-10 00:08] LABS: Add Urine Microscopic? NO
[2023-01-10 00:21] LABS: Alanine Aminotransferase 17 U/L (6-50); Albumin Level 4.1 g/dL (3.5-5.1); Alkaline Phosphatase 78 U/L (38-126); Anion Gap 5 mmol/L (8-16); Aspartate Amino Transferase 26 U/L (17-59); Bilirubin,Total 0.6 mg/dL (0.2-1.3); Blood Urea Nitrogen 17 mg/dL (9-20); Calcium 8.8 mg/dL (8.4-10.2); Carbon Dioxide 29 mmol/L (22-30); Chloride 105 mmol/L (98-107); Estimated CRCL calculation 104 ml/min; Estimated Glomerular Filt Rate > 60; Glucose 106 mg/dL (65-110); Potassium 3.6 mmol/L (3.4-5.0); Sodium 139 mmol/L (137-145)
[2023-01-10 00:35] VITALS: BP 124/80; PULSE 63; RESP 16; O2SAT 96
--- NOTE | 2023-01-10 02:19 | PC.NURSE ---
CRISIS team comes to evaluate the pt and the pt tells them that he is not having a psychiatric issue and refuses their assessment. RN called to the patient's room. Pt is alert and oriented x4, denies HI or SI, and ambulates from the ED with a steady gait.
== END 2023-01-10 02:21 | disposition left against medical advice (07) ==
PROVIDERS: Emergency Provider Physician Assistant
DX: F20.0 Paranoid schizophrenia (principal); Z11.52 Encounter for screening for COVID-19; F17.200 Nicotine dependence, unspecified, uncomplicated
CPT/HCPCS: 36415; 70450; 80053; 80307; 81003; 84443; 85025; 87635; 99284